=== PATIENT | female | born 1930 | race Caucasian/White ===

== ENCOUNTER 2016-10-22 03:16 | Inpatient (IN) ==
--- NOTE | 2016-10-22 03:25 | Emergency Department Note ---
Disposition Clinical Impression: Fracture of hip Qualifiers: Encounter type: initial encounter Fracture type: closed Laterality: right Qualified Code(s): S72.001A - Fracture of unspecified part of neck of right femur, initial encounter for closed fracture Disposition: Admitted As Inpatient Condition: Fair Time of Disposition: 06:03 Lower Extremity Injury HPI - General Chief Complaint: ED Extremity Injury, Lower Stated Complaint: left hip pain Time Seen by Provider: 10/22/16 03:23 Source: patient, EMS Mode of arrival: EMS Limitations: no limitations Nursing Notes Reviewed: Yes Vital Signs Reviewed: Yes - History of Present Illness HPI Narrative: Patient is brought to the emergency Department squat after a fall at home. She states that she is walking in the living room and turned the wrong way and fell. She states that she was unable to stand after this fall she did have her cellphone with her and she did call her son and they brought her to the emergency room. This was her second fall tonight she states that she has had frequent falls but no previous fractured. She states that she did not lose consciousness she was alert and oriented she continues to be alert and oriented states that she probably was down before someone came for about an hour. She is complaining of pain in the right hip there is obvious external rotation she has excellent pulses are present. Pt Subjective Complaint: hip injury Injury location: Right hip Onset (ago): hour(s) (1) Mechanism of Injury: fall Context: fall Place: home Pain Severity: severe Pain Scale: 10 Improves with: immobilization Worsens with: movement, palpation Associated symptoms: Reports: unable to bear weight - Related Data Previous Rx's Medication Instructions Recorded HYDROcodone/Acet 5/325 mg [[place] 1 tab PO Q6HR #15 tablet 05/27/15 5-325 mg] Allergies Allergy/AdvReac Type Severity Reaction Status Date / Time Penicillins Allergy Rash Verified 05/27/15 12:05 atorvastatin [From Lipitor] AdvReac Muscle Pain Verified 05/27/15 12:05 All systems ED: reviewed and negative except as stated. Constitutional: Denies: fever, chills, weakness, weight change Eyes: Denies: eye pain, eye discharge, vision change ENT ED: Denies: ear pain, throat pain, dental pain, hearing loss, epistaxis, congestion, dysphagia Cardiovascular: Denies: chest pain, palpitations, dyspnea on exertion, edema, syncope Respiratory: Denies: cough, dyspnea, wheezes, hemoptysis, stridor Gastrointestinal: Denies: abdominal pain, nausea, vomiting, diarrhea, constipation, hematemesis, melena, hematochezia Musculoskeletal: Reports: other (right hip pain, ) Neurological: Denies: headache, weakness, numbness, paresthesias, confusion, abnormal gait, vertigo Psychiatric: Denies: anxiety, depression, suicidal thoughts, homicidal thoughts , auditory hallucinations, visual hallucinations Endocrine: Denies: fatigue Hematological/Lymphatic: Denies: easy bleeding, easy bruising Past Medical History - Past Medical History Attestation: Yes The following information was validated with the patient. Source: patient, nursing notes reviewed Medical history: Reports: arthritis, diabetes, other Surgical history: Reports: appendectomy, hip replacement Psychiatric history: Reports: no psych history [employer] history: Reports: bilateral tubal ligation - Social History Smoking Status: Never smoker Smokeless Tobacco Status: No Alcohol use: Reports: none Drug use: Reports: none Physical Exam - General Limitations: no limitations General appearance: alert, in no apparent distress - Head Head exam: atraumatic, normocephalic, normal inspection - Eye Eye exam: Present: normal appearance, PERRL, EOMI - ENT ENT exam: normal exam, normal oropharynx, mucous membranes moist - Neck Neck exam: Present: normal inspection, full ROM, trachea midline - Chest Chest inspection: Present: normal inspection, symmetric chest wall rise - Respiratory Respiratory exam: Present: normal lung sounds bilaterally - Cardiovascular Cardiovascular exam: Present: regular rate, normal rhythm, normal heart sounds - Abdominal Exam Abdominal exam: Present: soft, Non-Tender. Absent: tenderness, distention, guarding, rebound, rigidity - Expanded Upper Extremity Exam Shoulder exam: Present: normal inspection, full ROM Arm exam: Present: normal inspection, full ROM Elbow exam: Present: normal inspection, full ROM Forearm/Wrist exam: Present: normal inspection, full ROM Hand exam: Present: normal inspection, full ROM Vascular exam: Normal: capillary refill, radial pulse - Expanded Lower Extremity Exam Hip/Pelvis exam: Present: tenderness (right hip with external rotation. Excellent pulses present distally to hip. ), deformity Upper leg exam: Present: tenderness (right ) Knee exam: Present: normal inspection, full ROM Lower leg exam: Present: normal inspection, full ROM Ankle exam: Present: normal inspection, full ROM Foot/toe exam: Present: normal inspection, full ROM Neurovascular/Tendon exam: Present: normal 2-point discrimination, normal fine/ light touch. Absent: motor deficit, sensory deficit, tendon deficit Gait: not tested/not observed, unable to bear weight - Back Exam Back exam: Present: normal inspection, full ROM. Absent: tenderness - Neurological Exam Neurological exam: Present: alert, oriented X3 - Psychiatric Psychiatric exam: Present: normal affect, normal mood - Skin Skin exam: Present: warm, dry, intact, normal color Course - Consultations Consultation #1: Spoke with Dr. Cleveland he advised to admit to the hospitalist and he will see her today. Time: 04:28 Consultation #2: Hospitalist paged. Time: 04:32 Consultation #3: Spoke with Dr. Wadsworth, hospitalist who accepted patient. He requested to admit her to [facility]. Time: 04:43 Vital Signs Temperature 0 F L 10/22/16 03:18 Pulse Rate 95 10/22/16 03:18 Respiratory Rate 16 10/22/16 03:18 Blood Pressure 158/81 10/22/16 03:18 O2 Sat by Pulse Oximetry 93 L 10/22/16 03:18 Temperature 0 F L 10/22/16 03:18 Pulse Rate 100 10/22/16 04:38 Respiratory Rate 16 10/22/16 04:38 Blood Pressure 124/59 10/22/16 04:38 O2 Sat by Pulse Oximetry 97 10/22/16 04:38 Oxygen Delivery Oxygen Delivery Nasal Cannula Extremity Injury, Lower - Lab Data Result diagrams: 10/22/16 04:04 10/22/16 04:04 Lab Results 10/22/16 10/22/16 10/22/16 Range/Units 04:04 04:04 04:04 WBC 18.3 H (4.3-11.1) K/mcL RBC 4.37 (3.82-4.97) M/mcL Hgb 12.8 (11.5-15.4) g/dL Hct 38.0 (35.3-44.9) % MCV 87.0 (83.0-100.0) fL MCH 29.3 (28.0-33.3) pg MCHC 33.7 (31.6-35.5) g/dL RDW 13.3 (11.5-14.5) % Plt Count 255 (140-400) K/mcL MPV 11.0 (9.4-12.4) fL Immature Gran % 1.5 (0-4) % Seg Neutrophils % 82.1 % Lymphocytes % 8.1 % Monocytes % 6.6 % Eosinophils % 1.0 % Basophils % 0.7 % Neutrophils # 15.0 H (1.6-8.9) K/mcL Lymphocytes # 1.5 (0.6-4.6) K/mcL Monocytes # 1.2 (0.0-1.3) K/mcL Eosinophils # 0.2 (0.0-0.6) K/mcL Basophils # 0.1 (0.0-0.2) K/mcL PT 13.1 H (9.4-12.1) Seconds INR 1.2 Sodium 136 (136-145) mEq/L Potassium 4.4 (3.5-4.5) mEq/L Chloride 103 (98-109) mEq/L Carbon Dioxide 22 (19-29) mEq/L BUN 16 (7-20) mg/dL Creatinine 1.34 H (0.57-1.11) mg/dL Est GFR ( Amer) 45 L (> 60) Est GFR (Non-Af Amer) 37 L (> 60) BUN/Creatinine Ratio 12 (6-26) Glucose 209 H (70-99) mg/dL Calculated Osmolality 289 (280-300) Calcium 10.0 (8.6-10.8) mg/dL Total Bilirubin 0.5 (0.2-1.2) mg/dL AST 24 (5-34) Units/L ALT 13 (0-55) Units/L Alkaline Phosphatase 85 (38-126) Units/L Serum Total Protein 7.1 (6.0-8.3) g/dL Albumin 3.5 (3.5-5.0) g/dL Globulin 3.6 H (2.4-3.5) g/dL Albumin/Globulin Ratio 1.0 L (1.1-2.2) Blood Type Antibody Screen 10/22/16 Range/Units 04:04 WBC (4.3-11.1) K/mcL RBC (3.82-4.97) M/mcL Hgb (11.5-15.4) g/dL Hct (35.3-44.9) % MCV (83.0-100.0) fL MCH (28.0-33.3) pg MCHC (31.6-35.5) g/dL RDW (11.5-14.5) % Plt Count (140-400) K/mcL MPV (9.4-12.4) fL Immature Gran % (0-4) % Seg Neutrophils % % Lymphocytes % % Monocytes % % Eosinophils % % Basophils % % Neutrophils # (1.6-8.9) K/mcL Lymphocytes # (0.6-4.6) K/mcL Monocytes # (0.0-1.3) K/mcL Eosinophils # (0.0-0.6) K/mcL Basophils # (0.0-0.2) K/mcL PT (9.4-12.1) Seconds INR Sodium (136-145) mEq/L Potassium (3.5-4.5) mEq/L Chloride (98-109) mEq/L Carbon Dioxide (19-29) mEq/L BUN (7-20) mg/dL Creatinine (0.57-1.11) mg/dL Est GFR ( Amer) (> 60) Est GFR (Non-Af Amer) (> 60) BUN/Creatinine Ratio (6-26) Glucose (70-99) mg/dL Calculated Osmolality (280-300) Calcium (8.6-10.8) mg/dL Total Bilirubin (0.2-1.2) mg/dL AST (5-34) Units/L ALT (0-55) Units/L Alkaline Phosphatase (38-126) Units/L Serum Total Protein (6.0-8.3) g/dL Albumin (3.5-5.0) g/dL Globulin (2.4-3.5) g/dL Albumin/Globulin Ratio (1.1-2.2) Blood Type A POSITIVE Antibody Screen NEGATIVE Attestation Statement - Attestation Attestation: I, Ronen Doshi MD, personally performed a history and physical exam of the patient and discussed their management with the midlevel provicer, PAC/WEB KNITTER. I reviewed the midlevel provider's note and agree with the documented findings, medical decision making, and plan of care. 86-year-old female persisted emergency department after a fall at home with an injury to the right hip. Patient states that she just fell onto the right hip and was unable to get up. She denies any syncope, she just lost her balance and fell. She states she did bump her head but denies any loss of consciousness and denies any headache or neck pain. On examination patient is a well-developed well-nourished elderly female in no acute distress. She is alert and oriented 3. There is no cyanosis or diaphoresis. Breath sounds are equal bilaterally. Heart regular rate and rhythm with a 3/6 systolic murmur. Abdomen soft with normal bowel sounds. There is tenderness over the right hip. The right leg is shortened and externally rotated. X-ray shows a displaced fracture of the right femoral neck. The mid-level provider discussed the case with the orthopedist electrician supervisor substation, Dr. Cleveland, and he recommended admission by the hospitalist with orthopedic consultation. The hospitalist, Dr. Wadsworth, was consulted and accepted admission of the patient.
[2016-10-22] MEDS ORDERED: *HR* HYDROmorphone (PF) 1 MG/ML SYRINGE IVP ONE ×2 (03:27→04:31)
[2016-10-22] MEDS ORDERED: 0.9 % Sodium Chloride 1,000 ML IVC ONE (03:27)
[2016-10-22 04:14] LABS: Basophils # 0.1 K/mcL (0.0-0.2); Basophils % 0.7 %; Eosinophils # 0.2 K/mcL (0.0-0.6); Hemoglobin 12.8 g/dL (11.5-15.4); Immature Granulocytes % 1.5 % (0-4); Lymphocytes # 1.5 K/mcL (0.6-4.6); Lymphocytes % 8.1 %; Mean Corpuscular HGB Conc 33.7 g/dL (31.6-35.5); Mean Corpuscular Hemoglobin 29.3 pg (28.0-33.3); Monocytes # 1.2 K/mcL (0.0-1.3); Monocytes % 6.6 %; Platelet Count 255 K/mcL (140-400); Red Blood Count 4.37 M/mcL (3.82-4.97); Red Cell Distribution Width 13.3 % (11.5-14.5); Segmented Neutrophils % 82.1 %
[2016-10-22 04:18] LABS: INR 1.2; Prothrombin Time 13.1 Seconds (9.4-12.1)
[2016-10-22 04:27] LABS: Albumin 3.5 g/dL (3.5-5.0); Bilirubin,Total 0.5 mg/dL (0.2-1.2); Globulin 3.6 g/dL (2.4-3.5); Potassium 4.4 mEq/L (3.5-4.5); Total Protein 7.1 g/dL (6.0-8.3)
[2016-10-22] MEDS ORDERED: Acetaminophen 325 MG TABLET PO PRN (04:49)
[2016-10-22] MEDS ORDERED: Ondansetron 4 MG/2 ML VIAL IVP PRN (04:49)
[2016-10-22] MEDS ORDERED: *HR* HYDROmorphone (PF) 1 MG/ML SYRINGE IVP PRN (04:49)
[2016-10-22] MEDS ORDERED: Naloxone 0.4 MG/ML INJ IVP PRN (04:49)
[2016-10-22] MEDS ORDERED: 0.9 % Sodium Chloride 1,000 ML IVC SCH (05:00)
[2016-10-22] MEDS ORDERED: *HR* Dextrose 50 % in Water (Syg) 50 ML SYRINGE IVP PRN (05:37)
[2016-10-22] MEDS ORDERED: D5% in Water 1,000 ML IV PRN (05:37)
[2016-10-22] MEDS ORDERED: Dextrose Gel 15 GM PO PRN ×2 (05:37)
[2016-10-22] MEDS ORDERED: *HR* Heparin 5,000 UNIT/ML VIAL SQ SCH (06:00)
[2016-10-22 06:01] LABS: VBG HCO3 27.4 mEq/L (21-27); VBG PH 7.29 pH Units (7.32-7.42)
[2016-10-22 06:13] LABS: Hemoglobin A1C 8.1 %
[2016-10-22 06:14] LABS: Magnesium 1.8 mg/dL (1.6-2.6); Phosphorous 3.3 mg/dL (2.3-4.7)
[2016-10-22 06:37] LABS: Thyroid Stimulating Hormone 3.572 mcIU/mL (0.350-4.840)
--- NOTE | 2016-10-22 06:38 | Orthopedic Consult Note ---
Date of Encounter: 10/22/16 Time of Encounter: 06:38 History of Present Illness HPI: Ms. Garcia is a 86 year old female Status post fall at home and complains of right hip pain and inability to walk. Patient has a history of severe aortic stenosis followed by our cardiology team. Patient with persistent cough. Physical exam alert and oriented 3 Right lower extremity shortened and externally rotated Decreased range of motion secondary to pain Neurovascular intact X-rays displaced right femoral neck fracture Recommendation right hip hemiarthroplasty patient will require medical clearance prior to surgery. Risks benefits as well as recovery were discussed Past Med Surg Social Fam HX - Past Medical History Medical history: arthritis, diabetes, other Psychiatric history: no psych history - Past Surgical History Surgical History: appendectomy, hip replacement - Social History Smoking Status: Never smoker Smokeless Tobacco Status: No Alcohol use: none Drug use: none - Family History Father Hx Family Cardiac Disorders: Yes Medications and Allergies HYDROcodone/Acet 5/325 mg [[place] 5-325 mg] 1 tab PO Q6HR #15 tablet 05/27/15 [Rx ] Allergies Penicillins Allergy (Verified 05/27/15 12:05) Rash atorvastatin [From Lipitor] Adverse Reaction (Verified 05/27/15 12:05) Muscle Pain All Systems Reviewed: A 10-system review of systems was performed and is negative for pertinent findings except as documented above in the HPI. Physical Exam - Constitutional Vitals: Temp Pulse Resp BP Pulse Ox 98.5 F 97 16 136/72 96 10/22/16 06:24 10/22/16 06:24 10/22/16 06:24 10/22/16 06:24 10/22/16 06:24 Results - Labs Result Diagrams: 10/22/16 04:04 10/22/16 04:04 Labs: Abnormal lab results WBC 18.3 K/mcL (4.3-11.1) H 10/22/16 04:04 Neutrophils # 15.0 K/mcL (1.6-8.9) H 10/22/16 04:04 PT 13.1 Seconds (9.4-12.1) H 10/22/16 04:04 VBG pH 7.29 pH Units (7.32-7.42) L 10/22/16 05:50 VBG pCO2 57 mmHg (41-51) H 10/22/16 05:50 VBG HCO3 27.4 mEq/L (21-27) H 10/22/16 05:50 Creatinine 1.34 mg/dL (0.57-1.11) H 10/22/16 04:04 Est GFR ( Amer) 45 (> 60) L 10/22/16 04:04 Est GFR (Non-Af Amer) 37 (> 60) L 10/22/16 04:04 Glucose 209 mg/dL (70-99) H 10/22/16 04:04 Hemoglobin A1c 8.1 % (-5.6) H 10/22/16 05:50 Troponin I 0.04 ng/mL (0-0.03) H* 10/22/16 05:50 Globulin 3.6 g/dL (2.4-3.5) H 10/22/16 04:04 Albumin/Globulin Ratio 1.0 (1.1-2.2) L 10/22/16 04:04 All other labs normal. Consult Discharge Plan - Plan Referrals: Yung Addison Jr, MD [Primary Care Provider] -
--- NOTE | 2016-10-22 06:45 | Internal Med History&Physical ---
<Tai Mcfadden - Last Filed: 10/22/16 08:02> Date of Encounter: 10/22/16 Time of Encounter: 06:00 Assessment and Plan (1) Fall Status: Acute R closed displaced femoral neck fracture s/p fall while walking at home. History of unbalance for 2 years. Unable to compensate, with worsening weakness for the past 3 weeks. Notes today first time falling, fell twice. Patient complains of URI symptoms x 3 weeks. Qualifiers: Encounter type: initial encounter Qualified Code(s): W19.XXXA - Unspecified fall, initial encounter (2) Fracture of femoral neck, right, closed Status: Acute XR showed acute displaced R femoral neck fracture. Dr. Cleveland notified and patient said he had been by to see her. Currently NPO. Continue pain management. Qualifiers: Encounter type: initial encounter Qualified Code(s): S72.001A - Fracture of unspecified part of neck of right femur, initial encounter for closed fracture (3) Upper respiratory infection Status: Acute Likely viral URI. Afebrile. Pending CXR. Consider sputum culture. Ordered scheduled duonebs, prn albuterol, incentive spirometry. Continue supplemental oxygen as needed. Qualifiers: URI type: unspecified URI Qualified Code(s): J06.9 - Acute upper respiratory infection, unspecified (4) Aortic stenosis Status: Chronic Patient states she was told in December 2014 that she had severe aortic stenosis. Will look for records to confirm. Pending echo. Consider cardiology consult. Will likely need consult for surgical clearance. Qualifiers: Cardiac valve disease etiology: etiology unspecified Qualified Code(s): I35.0 - Nonrheumatic aortic (valve) stenosis (5) Pain management Status: Acute Dilaudid 0.5mg Q4H prn. Internal Medicine - H&P: HPI Chief complaint: Fall Admitted From: Emergency Dept Plans for Post Hospital Care: Transfer Inp Rehab Fac History of present illness: Ms. Garcia is a 86 year old female that presented to the ED for R hip pain, s/ p fall at home this evening. Patient states she had two falls today, both in her living room. With the second fall, patient was unable to get up and was experiencing severe pain in right hip. Patient was able to call family to come get her. Patient notes increased instability and unbalance since she was inpatient with pneumonia on 12/29/14. Patient has been acutely worse the past 3 weeks while dealing with upper respiratory symptoms of cough, sputum, shortness of breath, and weakness. Patient states she was not able to get in to see her doctor for her symptoms. Patiet states she was unable to counteract her unbalance today and fell twice, she states this is the first time she has fallen. Patient denies headache, syncope, dizziness, chest pain, abdominal pain , nausea, vomiting, diarrhea, constipation, dysuria, or blood in stool/urine. Past Med Surg Social Fam HX - Past Medical History Medical history: arthritis, diabetes, other Psychiatric history: no psych history - Past Surgical History Surgical History: appendectomy, hip replacement - Social History Smoking Status: Never smoker Smokeless Tobacco Status: No Alcohol use: none Drug use: none - Family History Father Hx Family Cardiac Disorders: Yes Internal Medicine - H&P: Meds Furosemide [Lasix] 20 mg PO DAILY 10/22/16 [History] Isosorbide MONOnitrate (24 HR) [Imdur] 30 mg PO DAILY 10/22/16 [History] Meloxicam [Meloxicam] 15 mg PO DAILY PRN 10/22/16 [History] Nitroglycerin [Nitrostat] 0.4 mg PO Q5M PRN 10/22/16 [History] Allergies Penicillins Allergy (Verified 10/22/16 08:44) Rash atorvastatin [From Lipitor] Adverse Reaction (Verified 10/22/16 08:44) Muscle Pain All Systems PM: A 10-system review of systems was performed and is negative for pertinent findings except as documented above in the HPI. - Constitutional Constitutional: falls, weight loss (5 lbs), no chills, no fever(s) - EENT Eyes: no change in vision, no loss of vision Nose, mouth and throat: post-nasal drip, sore throat - Cardiovascular Cardiovascular ROS IM: dyspnea, no chest pain, no lightheadedness, no palpitations, no syncope - Respiratory Respiratory: cough, dyspnea, excessive phlegm production (yellow) - Gastrointestinal Gastrointestinal: no abdominal pain, no constipation, no diarrhea, no hematemesis, no hematochezia, no nausea, no vomiting - Musculoskeletal Musculoskeletal ROS IM: muscle weakness - Integumentary Integumentary IM: no erythema, no rash - Neurological Neurological ROS: disequilibrium, no confusion, no dizziness - Hematologic/Lymphatic Hematologic/Lymphatic: no easy bleeding - Constitutional Vitals: Temp Pulse Resp BP Pulse Ox 98.5 F 97 16 136/72 96 10/22/16 06:24 10/22/16 06:24 10/22/16 06:24 10/22/16 06:24 10/22/16 06:24 General appearance: Present: cooperative, A&O X 3, no acute distress, answers questions appropriately - Head Head exam: Present: atraumatic, normocephalic - Eye Eye exam: Present: conjuntiva pink, sclera anicteric Pupils: Present: miosis - Neck Neck exam general surgery: Present: full ROM, supple, trachea midline - Respiratory Respiratory exam: Present: wheezes (diffuse wheezing heard throughout). Absent : accessory muscle use, rales, rhonchi - Cardiovascular Cardiovascular exam: Present: RRR, +S1, +S2, systolic murmur (harsh holosystolic murmur 3/6). Absent: diastolic murmur, gallop, rubs - GI/Abdominal GI/Abdominal exam: Present: normal bowel sounds, soft, no peritoneal signs. Absent: distended, tenderness - Extremities Exam Extremities exam: Present: tenderness (tenderness of upper right thigh), warm. Absent: calf tenderness, cyanotic, pedal edema Additional comments: DP pulses 2+ bilaterally. No gross swelling. No gross discrepancy in size between legs. - Neurological Exam Neurological exam: Present: alert, oriented X3, no focal deficits. Absent: facial droop, speech deficit - Skin Skin exam: Present: dry, intact Internal Med - H&P Results - Labs CBC & Chem 7: 10/22/16 04:04 10/22/16 04:04 Labs: Cardiac Enzymes 10/22/16 Range/Units 05:50 Troponin I 0.04 H* (0-0.03) ng/mL - ABG Interpretation ABG results: 10/22/16 05:50 VBG pH 7.29 L VBG pCO2 57 H VBG pO2 33 VBG HCO3 27.4 H <Lawrence Wadsworth - Last Filed: 10/24/16 02:46> Date of Encounter: 10/22/16 Assessment and Plan (1) 3-vessel coronary artery disease Status: Chronic . (2) Coronary artery disease involving left main coronary artery Status: Chronic . (3) CHF NYHA class III (symptoms with mildly strenuous activities) Status: Chronic . Qualifiers: Congestive heart failure type: combined Congestive heart failure chronicity : chronic Qualified Code(s): I50.42 - Chronic combined systolic (congestive) and diastolic (congestive) heart failure (4) Solitary pulmonary nodule Status: Chronic . (5) Diabetes mellitus type 2 in nonobese Status: Chronic . (6) CKD (chronic kidney disease) stage 3, GFR 30-59 ml/min Status: Chronic . (7) Fracture of femoral neck, right, closed Status: Acute . Qualifiers: Encounter type: initial encounter Qualified Code(s): S72.001A - Fracture of unspecified part of neck of right femur, initial encounter for closed fracture (8) Severe aortic stenosis Status: Chronic . (9) Osteoarthritis involving multiple joints on both sides of body Status: Chronic . (10) Osteoporosis Status: Chronic . (11) Age-related physical debility Status: Chronic . Internal Medicine - H&P: HPI History of present illness: Ms. Garcia is a 86 year old female with medical history significant for severe multivessal CAD/left main CAD, chronic diastolic CHF/NYHA III-IV, valvular heart disease/ severe aortic stenosis, indeterminate pulmonary nodules (?mets), hypertension, dyslipidemia, osteoarthritis, osteoporosis, lumbar spinal stenosis , diabetes mellitus type 2, COPD, nonsmoker The patient was visited and interviewed and examined. I examined this patient and my medical decision-making was reviewed with the Resident Physician. I agree with the documented findings, disposition and treatment plan as described except to the extent set forth below. Cumulative laboratory and radiographic database was reviewed and considered and discussed. Pertinent ancillary medical records including ECW and PCI documentation, when available, was reviewed and considered. Given the patient's presenting concerns, past medical history, clinical findings and symptoms, she is admitted at this time to undergo further evaluation and disposition. Orders were written as per the computerized physician warehouse order filler system. Past Med Surg Social Fam HX - Past Medical History Source: old records reviewed Medical history: arthritis, cardiomyopathy, CHF (Diastolic dysfunction.), coronary artery disease, diabetes, hyperlipidemia, hypertension, osteoporosis, renal disease, valvular heart disease (H/O Rheumatic fever.), other (Lumbar spinal stenosis. Positional vertigo. Every loss. Dyschromia. Stress urinary incontinence. Plantar fasciitis. Degenerative joint disease. Cataracts.) - Past Surgical History Surgical History: appendectomy, cataract, hip replacement (3), orthopedic, other (Laminectomy. Right carpal tunnel release.), other (Tonsillectomy adenoidectomy. Tubal ligation.) - Social History Smoking Status: Never smoker Occupational status: other Current living situation: Home - Independent Activity Level: Independent ambulation, Mostly sedentary Recent Out of Country Travel Within the Last 8 Weeks: No Exposure or Possible Exposure to Illness During Travel: No All Systems PM: A 10-system review of systems was performed and is negative for pertinent findings except as documented above in the HPI. - Constitutional Vitals: Temp Pulse Resp BP Pulse Ox 98.8 F 87 16 119/63 96 10/22/16 14:58 10/22/16 14:58 10/22/16 14:58 10/22/16 14:58 10/22/16 14:58 Internal Med - H&P Results - Labs CBC & Chem 7: 10/22/16 04:04 10/22/16 04:04 - ABG Interpretation ABG results: 10/22/16 05:50 VBG pH 7.29 L VBG pCO2 57 H VBG pO2 33 VBG HCO3 27.4 H - Impressions ITS Impressions Chest CT 10/22/16 09:00 IMPRESSION: 1. No acute pulmonary abnormality. 2. Left lower lobe nodule measuring 12 x 9 mm has enlarged from 9 x 7 mm previously and is suspicious for malignancy. The next step would be further evaluation with PET-CT or percutaneous biopsy. D/ / 10/22/2016 09:11:21 Booker Noble MD / [email or web address] Interpreting Provider: Booker Noble MD Abnormal lab results WBC 18.3 K/mcL (4.3-11.1) H 10/22/16 04:04 Neutrophils # 15.0 K/mcL (1.6-8.9) H 10/22/16 04:04 PT 13.1 Seconds (9.4-12.1) H 10/22/16 04:04 VBG pH 7.29 pH Units (7.32-7.42) L 10/22/16 05:50 VBG pCO2 57 mmHg (41-51) H 10/22/16 05:50 VBG HCO3 27.4 mEq/L (21-27) H 10/22/16 05:50 Creatinine 1.34 mg/dL (0.57-1.11) H 10/22/16 04:04 Est GFR ( Amer) 45 (> 60) L 10/22/16 04:04 Est GFR (Non-Af Amer) 37 (> 60) L 10/22/16 04:04 Glucose 209 mg/dL (70-99) H 10/22/16 04:04 POC Glucose 119 (58-89) H 10/22/16 11:44 Hemoglobin A1c 8.1 % (-5.6) H 10/22/16 05:50 Troponin I 3.29 ng/mL (0-0.03) H* 10/22/16 11:40 Globulin 3.6 g/dL (2.4-3.5) H 10/22/16 04:04 Albumin/Globulin Ratio 1.0 (1.1-2.2) L 10/22/16 04:04 Urine Glucose (UA) 100 mg/dL (Normal) H 10/22/16 09:35 Urine Ketones Trace mg/dL (Negative) H 10/22/16 09:35 Laboratory Results WBC 18.3 K/mcL (4.3-11.1) H 10/22/16 04:04 RBC 4.37 M/mcL (3.82-4.97) 10/22/16 04:04 Hgb 12.8 g/dL (11.5-15.4) 10/22/16 04:04 Hct 38.0 % (35.3-44.9) 10/22/16 04:04 MCV 87.0 fL (83.0-100.0) 10/22/16 04:04 MCH 29.3 pg (28.0-33.3) 10/22/16 04:04 MCHC 33.7 g/dL (31.6-35.5) 10/22/16 04:04 RDW 13.3 % (11.5-14.5) 10/22/16 04:04 Plt Count 255 K/mcL (140-400) 10/22/16 04:04 MPV 11.0 fL (9.4-12.4) 10/22/16 04:04 Immature Gran % 1.5 % (0-4) 10/22/16 04:04 Seg Neutrophils % 82.1 % 10/22/16 04:04 Lymphocytes % 8.1 % 10/22/16 04:04 Monocytes % 6.6 % 10/22/16 04:04 Eosinophils % 1.0 % 10/22/16 04:04 Basophils % 0.7 % 10/22/16 04:04 Neutrophils # 15.0 K/mcL (1.6-8.9) H 10/22/16 04:04 Lymphocytes # 1.5 K/mcL (0.6-4.6) 10/22/16 04:04 Monocytes # 1.2 K/mcL (0.0-1.3) 10/22/16 04:04 Eosinophils # 0.2 K/mcL (0.0-0.6) 10/22/16 04:04 Basophils # 0.1 K/mcL (0.0-0.2) 10/22/16 04:04 PT 13.1 Seconds (9.4-12.1) H 10/22/16 04:04 INR 1.2 10/22/16 04:04 APTT 29.7 Seconds (26.0-36.0) 10/22/16 05:50 VBG pH 7.29 pH Units (7.32-7.42) L 10/22/16 05:50 VBG pCO2 57 mmHg (41-51) H 10/22/16 05:50 VBG pO2 33 mmHg (25-40) 10/22/16 05:50 VBG HCO3 27.4 mEq/L (21-27) H 10/22/16 05:50 Sodium 136 mEq/L (136-145) 10/22/16 04:04 Potassium 4.4 mEq/L (3.5-4.5) 10/22/16 04:04 Chloride 103 mEq/L (98-109) 10/22/16 04:04 Carbon Dioxide 22 mEq/L (19-29) 10/22/16 04:04 BUN 16 mg/dL (7-20) 10/22/16 04:04 Creatinine 1.34 mg/dL (0.57-1.11) H 10/22/16 04:04 Est GFR ( Amer) 45 (> 60) L 10/22/16 04:04 Est GFR (Non-Af Amer) 37 (> 60) L 10/22/16 04:04 BUN/Creatinine Ratio 12 (6-26) 10/22/16 04:04 Glucose 209 mg/dL (70-99) H 10/22/16 04:04 POC Glucose 119 (58-89) H 10/22/16 11:44 Est Mean Plasma Glucose 186 mg/dl 10/22/16 05:50 Hemoglobin A1c 8.1 % (-5.6) H 10/22/16 05:50 Calculated Osmolality 289 (280-300) 10/22/16 04:04 Calcium 10.0 mg/dL (8.6-10.8) 10/22/16 04:04 Phosphorus 3.3 mg/dL (2.3-4.7) 10/22/16 05:50 Magnesium 1.8 mg/dL (1.6-2.6) 10/22/16 05:50 Total Bilirubin 0.5 mg/dL (0.2-1.2) 10/22/16 04:04 AST 24 Units/L (5-34) 10/22/16 04:04 ALT 13 Units/L (0-55) 10/22/16 04:04 Alkaline Phosphatase 85 Units/L (38-126) 10/22/16 04:04 Creatine Kinase 61 Units/L (29-168) 10/22/16 05:50 Troponin I 3.29 ng/mL (0-0.03) H* 10/22/16 11:40 Serum Total Protein 7.1 g/dL (6.0-8.3) 10/22/16 04:04 Albumin 3.5 g/dL (3.5-5.0) 10/22/16 04:04 Globulin 3.6 g/dL (2.4-3.5) H 10/22/16 04:04 Albumin/Globulin Ratio 1.0 (1.1-2.2) L 10/22/16 04:04 TSH 3.572 mcIU/mL (0.350-4.840) 10/22/16 05:50 Urine Color Yellow (Yellow) 10/22/16 09:35 Urine Clarity Clear (Clear) 10/22/16 09:35 Urine pH 5.0 pH Units (5.0-8.0) 10/22/16 09:35 Ur Specific Win[place]red 1.013 (1.010-1.025) 10/22/16 09:35 Urine Protein Negative mg/dL (Neg-Trace) 10/22/16 09:35 Urine Glucose (UA) 100 mg/dL (Normal) H 10/22/16 09:35 Urine Ketones Trace mg/dL (Negative) H 10/22/16 09:35 Urine Blood Negative (Negative) 10/22/16 09:35 Urine Nitrite Negative (Negative) 10/22/16 09:35 Urine Bilirubin Negative (Negative) 10/22/16 09:35 Urine Urobilinogen Normal mg/dL (Normal) 10/22/16 09:35 Ur Leukocyte Esterase Negative (Negative) 10/22/16 09:35 Blood Type A POSITIVE 10/22/16 04:04 Antibody Screen NEGATIVE 10/22/16 04:04 Impressions Hip X-Ray 10/22/16 03:27 IMPRESSION: Acute displaced right femoral neck fracture. D/ / 10/22/2016 05:29:36 Chad Titus MD / [facility] Interpreting Provider: Chad Titus MD Chest X-Ray 10/22/16 04:55 IMPRESSION: Slightly increased interstitial markings bilaterally which may be related to chronic interstitial lung disease versus mild edema. There is also a subtle opacity in left lung base, which may represent early infiltrate. Also given findings of nodules noted on the prior PET-CT, CT of the chest is recommended if this has not already been performed at a different facility. D/ / 10/22/2016 07:21:50 Hallie Crespo MD / [facility] Interpreting Provider: Hallie Crespo MD Chest CT 10/22/16 09:00 IMPRESSION: 1. No acute pulmonary abnormality. 2. Left lower lobe nodule measuring 12 x 9 mm has enlarged from 9 x 7 mm previously and is suspicious for malignancy. The next step would be further evaluation with PET-CT or percutaneous biopsy. D/ / 10/22/2016 09:11:21 Booker Noble MD / [facility] Interpreting Provider: Booker Noble MD - Attending Attestation My signature below is to certify that this patient is under my care and that I, or the Resident Physician working with me, has had a [id number] encounter with this patient. Plan of care has been reviewed and discussed in detail with the patient. Questions addressed to her satisfaction and reassurance. Advance care directive briefly addressed. Patient does not declare any healthcare restrictions at this time. Outpatient medication schedule will be reviewed, confirmed and facilitated as appropriate. Reconciliation of home treatments including adjustments, substitutions and reintroduction into the treatment regimen will address necessary maintenance therapies for chronic pre-existing medical conditions. Smoking cessation counseling briefly addressed. The patient is a nonsmoker. Hospital course will be dependent on collective clinical findings, treatment response and potential consultative interventions. The patient is at increased risk for further acute clinical decline in mobility given her presenting chief complaint, advanced age, frailty and associated comorbidities. Pre-operative medical clearance consultation requested of a Cardiology, in light of significant history of moderate to severe aortic stenosis and severe multivessel CAD with NYHA class III-IV functional limitation. Condition is serious. Prognosis is guarded. CODE STATUS is reported as full.
[2016-10-22] MEDS ORDERED: Albuterol 2.5 MG/3 ML NEBULIZER IH PRN (06:55)
[2016-10-22] MEDS ORDERED: Benzonatate 100 MG CAPSULE PO PRN (06:57)
--- NOTE | 2016-10-22 08:53 | Cardiology Consult Note ---
Date of Encounter: 10/22/16 Time of Encounter: 08:45 Assessment and Plan (1) Pre-operative cardiovascular examination Current Visit: Yes Status: Acute Patient has a known history of severe CAD and severe aortic stenosis diagnosed in December 2014. She opted for medical management at that time d/t being high risk for surgery. Reports intermittent chest pain with exertion and at night requiring SL NTG. Mild troponin in the setting off fall/fracture and known CAD. Demand ischemia. EKG shows mild ST depression in the anterolateral leads. TTE ordered by hospitalist and pending. Re-evaluate EF. High risk of severe morbidity and mortality for hip surgery with known symptomatic severe aortic stenosis. Discussed with Dr. Arnold, recommends transfer to tertiary center for evaluation for ballon valvuloplasty of the aortic valve prior to hip surgery. TTE pending. We will discuss further with patient. (2) Severe aortic stenosis Current Visit: Yes Status: Acute Cardiac catheterization Dec 2014: severe 80% left main three vessel coronary artery disease. Severe aortic stenosis with a mean gradient of 42 mmHg. Echocardiogram Dec 2014: LVEF 65-70%.Mild diastolic dysfunction.Normal right ventricular structure and function. Heavily calcified, severely restricted aortic valve. Visually, the valve appears severely stenotic. MG 17 mmHg would indicate only mild ; this is certainly underestimated. Dimensionless index 0.34 indicates moderate , which also may underestimate severity of . Mild tricuspid regurgitation. No pulmonary hypertension. Estimated RVSP is 27 mmHg Pt evaluated by CT surgery at [place] 06/2015. Recommended further evaluation for AVR /CABG but she declined at that time. Last seen 05/2016 in Cardiology office. (3) CAD (coronary artery disease) Current Visit: Yes Status: Acute Asa and beta-casey recommended. Continue imdur. On metoprolol succinate 25 mg daily at home. I will restart. Not on statin d/t allergy. Qualifiers: Coronary Disease-Associated Artery/Lesion type: resighini artery [place] vs. transplanted heart: resighini heart Associated angina: angina presence unspecified Qualified Code(s): I25.10 - Atherosclerotic heart disease of resighini coronary artery without angina pectoris Discussion w patient/family: The assessment and plan as outlined above was discussed with the patient and/or family members who expressed understanding and agreement. All questions were answered. Thank you for involving us in the care of your patient. Please call with any questions. History of Present Illness Consult date: 10/22/15 Requesting physician: Tai Mcfadden Consult reason: Pre-operative cardiac clearance. Chief complaint: Fall History of present illness: Ms. Garcia is a 86 year old female with past medical history of severe , severe 3 vessel CAD, and HTN who presents after mechanical fall. She was found to have a right hip fracture. Cardiology consulted for pre-operative clearance. Pt Fell at home after turning the wrong way. She was unable to get up and laid in her living room for an hour for help. Reports feeling off balance for the past 3 weeks and almost falling several times before this fall. She denied chest pain at the time of fall or after. Denied dizziness or syncope. C/o midsternal chest pain waking her up from her sleep two nights ago. The pain was relieved with 2 SL NTG. Also c/o of chest pain with any physical exertion. C/o moist cough for over three weeks. She took over the counter medication with no relief. Denies orthopnea, PND or edema. She was found to have severe aortic stenosis with mean gradient of 42 mmHg and CAD with and 80% stenosis in the LMCA with 3 V CAD in December 2014. She declined evaluation for surgery at tertiary center and opted for medical mangement only. Previous cardiac testing: Cardiac catheterization 2014: severe 80% left main three vessel coronary artery disease. Severe aortic stenosis with a mean gradient of 42 mmHg. 95% stenosis in the ostial/Proximal LAD. 60% stenosis in the Proximal Circumflex, 60% stenosis in the Mid Circumflex., 40% stenosis in the 1st Marginal,100% stenosis in the Mid RCA. Echocardiogram 2014: Normal left ventricular structure and function. LVEF 65-70%. Mild diastolic dysfunction. Normal right ventricular structure and function. Heavily calcified, severely restricted aortic valve. Visually, the valve appears severely stenotic. MG 17 mmHg would indicate only mild ; this is certainly underestimated. Dimensionless index 0.34 indicates moderate , which also may underestimate severity of . If patient is a candidate for aortic valve replacement, consider cardiac catheterization for confirmation of severity of . Mild tricuspid regurgitation. No pulmonary hypertension. Estimated RVSP is 27 mmHg Past Med Surg Social Fam HX - Past Medical History Medical history: arthritis, diabetes, other Psychiatric history: no psych history - Past Surgical History Surgical History: appendectomy, hip replacement - Social History Smoking Status: Never smoker Smokeless Tobacco Status: No Alcohol use: none Drug use: none - Family History Father Hx Family Cardiac Disorders: Yes Medications and Allergies Furosemide [Lasix] 20 mg PO DAILY 10/22/16 [History] Isosorbide MONOnitrate (24 HR) [Imdur] 30 mg PO DAILY 10/22/16 [History] Meloxicam [Meloxicam] 15 mg PO DAILY PRN 10/22/16 [History] Nitroglycerin [Nitrostat] 0.4 mg PO Q5M PRN 10/22/16 [History] Allergies Penicillins Allergy (Verified 10/22/16 08:44) Rash atorvastatin [From Lipitor] Adverse Reaction (Verified 10/22/16 08:44) Muscle Pain All Systems Review: A 10-system review of systems was performed and is negative for pertinent findings except as documented above in the HPI. Physical Examination Vital Signs, Last 4 Hours Temp Pulse Resp BP Pulse Ox 10/22/16 06:24 98.5 F 97 16 136/72 96 General: Conversant, No Apparent Distress, Other (Elderly female. ) HEENT: Atraumatic, Normocephaly, Mucus Membranes Moist Neck: No JVD, Normal carotid pulses Cardiac: Reg Rate and Rhythm, Normal S1 and S2, Other (3/6 systolic murmur) Lungs: Normal Breath Sounds, No Wheeze, Rales, Rhonchi Neuro: Alert and responsive, No focal deficits noted Abdomen: Soft, Non-Tender Skin: No rashes noted on visualized skin Musculoskeletal: No Chest Wall Tenderness Extremities: No Clubbing, No Cyanosis, No Edema, Normal Pulses Results 10/22/16 04:04 10/22/16 04:04 Lab Results 10/22/16 10/22/16 10/22/16 05:50 05:50 05:50 APTT 29.7 Magnesium 1.8 Troponin I 0.04 H* TSH 3.572 - Imaging and Cardiology Echo: report reviewed - EKG Interpretation EKG results cardiology: personally reviewed (Sr with borderline ST depression in leads V3-V6) Consult Discharge Plan - Plan Referrals: Yung Addison Jr, MD [Primary Care Provider] -
[2016-10-22] MEDS ORDERED: MethylPREDNISolone 40 MG/ML VIAL IVP SCH (09:00)
[2016-10-22] MEDS: *HR* OxyCODONE Immed Rel 5 MG TABLET PO PRN ×2 (09:11→15:05)
[2016-10-22] MEDS: Insulin LISPRO 300 UNITS/3 ML VIAL SQ SCH ×2 (09:21→11:45)
[2016-10-22 09:57] LABS: Bilirubin,Urine Negative (Negative); Blood,Urine Negative (Negative); Clarity,Urine Clear (Clear); Color,Urine Yellow (Yellow); Glucose,Urine (UA) 100 mg/dL (Normal); Ketones,Urine Trace mg/dL (Negative); Leukocyte Esterase,Urine Negative (Negative); Nitrite,Urine Negative (Negative); Protein,Urine Negative (Neg-Trace); Specific Gravity,Urine 1.013 (1.010-1.025); Urobilinogen,Urine Normal (Normal)
--- NOTE | 2016-10-22 10:11 | ECHO - Doppler Report ---
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 Normal LV chamber size and wall thickness. Not all LV segments were well visualized, but overall LV function was normal. Mild left ventricular diastolic dysfunction. Normal right ventricular structure and function. Moderately calcified aortic valve leaflets. Moderate aortic stenosis. Mean gradient 23 mmHg. No evidence of pulmonary hypertension. Findings: Study Quality * Technically sub-optimal due to poor echocardiographic windows. ECG Findings * Normal sinus rhythm. Left Ventricle * LVEF 60-65%. * Normal LV chamber size and wall thickness. Not all LV segments were well visualized, but overall LV function was normal. * Mild left ventricular diastolic dysfunction. Right Ventricle * Normal right ventricular structure and function. Left Atrium * Mildly dilated left atrium. Right Atrium * Normal right atrial size. Interatrial Septum * Interatrial septum not well evaluated. Aortic Valve * Moderately calcified aortic valve leaflets. The number of leaflets cannot be determined. * No aortic regurgitation. * Moderate aortic stenosis. Mean gradient 23 mmHg. Mitral Valve * Mildly thickened mitral valve leaflets. * Mild mitral annular calcification * Trace mitral regurgitation. * No mitral stenosis. Tricuspid Valve * Normal tricuspid valve structure and function. * Trace tricuspid regurgitation. * No evidence of pulmonary hypertension. Pulmonic Valve * Normal pulmonic valve structure and function. * No pulmonic regurgitation. Aorta * Normally sized aortic root. Pericardium * The pericardium appears normal. IVC * Normal IVC dimensions and inspiratory collapse. Pulmonary Artery * Normal visualized portions of the main pulmonary artery. History Family History of CAD 12/29/14 a Previous Echo was performed. Measurements: BP: 136/ 72 2D Normal Values RVIDd: 2.30 cm <2.7 cm IVSd: 1.10 cm 0.6 - 1.0 cm LVIDd: 3.60 cm 3.7 - 5.6 cm LVPWd: 1.20 cm 0.6 - 1.1 cm LVIDs: 2.60 cm 1.5 - 3.6 cm AO: 2.60 cm < 4.0 cm LA: 3.00 cm 2.0 - 4.0cm %FS: 27.80 cm >25 % LVOT Diam: 2.00 cm LA volume: 31 Mitral Valve Peak E:.89 m/sec Peak A:1.28 m/sec E/A Ratio:0.7 Peak E' Lat Ra:6.43 cm/s Peak E' Med Ra:4.97 cm/s LVOT Peak Ra:.84 m/sec Mean Ra:.60 m/sec Peak Grad:3.00 mmHg Mean Grad:2.00 mmHg Aortic Valve Peak Ra:2.88 m/sec Mean Ra:2.32 m/sec Peak Grad:33.00 mmHg Mean Grad:23.00 mmHg Valve Area:.98 cm2 Tricuspid Valve TV Regurg Peak Grad: 11.00mmHg TV Regurg Peak Ra: 1.64m/sec Updated by Leonardo Mcclendon DO, FACChaparro, NARAYAN, FASMICHELLE on 10/22/2016 10:06:20 AM electronically signed on 10/22/2016 10:07:05 AM with status of [employer]: 1=Normal, 2=Hypokinesis, 3=Akinesis, 4=Dyskinesis, 5=Aneurysmal, 6=Hyperkinetic, X=Not Visualized (Blank)=Missing
[2016-10-22] MEDS ORDERED: Metoprolol XL (24 HR) Succ 25 MG TAB.ER.24H PO SCH (10:45)
[2016-10-22] MEDS ORDERED: Aspirin Enteric Coated 81 MG Tablet PO SCH (10:45)
[2016-10-22] MEDS ORDERED: Ipratropium/Albuterol Neb 3 ML IH SCH (11:00)
--- NOTE | 2016-10-22 11:56 | Discharge Summary ---
Date of Encounter: 10/22/16 Time of Encounter: 11:54 - Discharge Diagnosis (1) Fracture of femoral neck, right, closed Priority: Primary Status: Acute Comments: Patient admitted here for right femoral neck fracture. Related by orthopedics. Recommended surgery. However patient has severe aortic stenosis and coronary artery disease with severe multivessel disease. Recommend transfer to tertiary care center for further management. Qualifiers: Encounter type: initial encounter Qualified Code(s): S72.001A - Fracture of unspecified part of neck of right femur, initial encounter for closed fracture (2) CAD (coronary artery disease) Priority: Secondary Status: Acute Qualifiers: Coronary Disease-Associated Artery/Lesion type: [place] artery [place] vs. transplanted heart: [place] heart Associated angina: angina presence unspecified Qualified Code(s): I25.10 - Atherosclerotic heart disease of [place] coronary artery without angina pectoris (3) Severe aortic stenosis Priority: Secondary Status: Acute (4) Upper respiratory infection Priority: Secondary Status: Acute Comments: Viral. Improving. Supportive care Qualifiers: URI type: unspecified URI Qualified Code(s): J06.9 - Acute upper respiratory infection, unspecified - Discharge Medications Home Medications: Furosemide [Lasix] 20 mg PO DAILY 10/22/16 [History] Isosorbide MONOnitrate (24 HR) [Imdur] 30 mg PO DAILY 10/22/16 [History] Meloxicam [Meloxicam] 15 mg PO DAILY PRN 10/22/16 [History] Nitroglycerin [Nitrostat] 0.4 mg PO Q5M PRN 10/22/16 [History] Allergies/Adverse Reactions: Allergies Penicillins Allergy (Verified 10/22/16 08:44) Rash atorvastatin [From Lipitor] Adverse Reaction (Verified 10/22/16 08:44) Muscle Pain Procedures/tests Complete & Pending: Procedures Performed prior 72 hours Category Date Time Status CT chest w/o contrast [CT chest wo con] [CT] Routine Cat Scan 10/22/16 09:00 Draft Date of admission: 10/22/16 04:58 Primary care physician: Yung Addison Jr, MD Consults: 10/22/16 06:55 Consult to Nurse Navigator [CONS] Routine Comment: 10/22/16 08:00 Consult to Cardiology [CONS] Routine Comment: Consulting Provider: [facility] [place] Reason for Consult: Preoperative medical clearance for patient with known moderate aortic stenosis and three-vessel coronary artery disease. Acute, displaced right femoral neck/ hip fracture. Please evaluate and advise. Call Completed: No Consult to Orthopedic Surgery [CONS] Routine Consulting Provider: Ovidio [place] Reason for Consult: Mechanical fall with acute, displaced, right femoral neck fracture. Please evaluate and advise. Time Notified: 04:50 Call Completed: Yes Discharging clinician: Benjie Mullins Anticipated date of discharge: 10/22/16 - Patient Status Disposition: Transfer Other Condition: Critical Functional capacity at discharge: bed bound Overall status at discharge: patient is not back to baseline - Discharge Instructions Follow Up With: Yung Addison Jr, MD [Primary Care Provider] - - Diet and Activity Diet: diabetic diet, low fat, low cholesterol, low salt diet Hospital course: Ms. Garcia is a 86 year old female with history of coronary artery disease and aortic stenosis was admitted here after a fall resulting in right femoral neck fracture. During her evaluation and review of her records, she was found to have severe aortic stenosis and multivessel, left main coronary artery disease during her previous hospitalization here when she underwent a left heart catheterization. At that time, she was recommended transfer to tertiary care center but she had refused and had been discharged. She has not followed up with data management manager since then. Orthopedics has evaluated the patient and recommended surgery for her. However given her aortic stenosis, coronary artery disease, recommended transfer to tertiary care center for balloon valvuloplasty, management of coronary artery disease prior to surgery as she is at higher risk for cardiac complications from hip surgery otherwise. I discussed this with the patient and she is willing to be transferred for evaluation and possible valvuloplasty for her aortic stenosis. She has been accepted for transfer to [facility] and will be transferred there when she has a bed available. - Time Spent with Patient Total time spent providing and/or coordinating discharge services: Greater than 30 minutes (35 min) - Constitutional Vitals: Temp Pulse Resp BP Pulse Ox 98.5 F 89 18 108/61 90 L 10/22/16 06:24 10/22/16 11:48 10/22/16 11:01 10/22/16 11:48 10/22/16 11:01 General appearance: Present: cooperative, A&O X 3, no acute distress, answers questions appropriately - Respiratory Respiratory exam: Present: CTAB. Absent: accessory muscle use, rales, rhonchi, wheezes - Cardiovascular Cardiovascular exam: Present: RRR, +S1, +S2, systolic murmur (Ejection systolic) . Absent: diastolic murmur, gallop, rubs - GI/Abdominal GI/Abdominal exam: Present: normal bowel sounds, soft, no peritoneal signs. Absent: distended, tenderness - Extremities Exam Extremities exam: Present: warm, radial pulses palpable and symetrical. Absent : calf tenderness, cyanotic, pedal edema - Attending Attestation This document has been at least partially created by Inu[employer] recognition technology by Dr. Mullins. Errors in grammar, wording or other phrases may exist. If errors are found after the documentation is signed, they will be addressed individually in the addendum section of this document when appropriate.
[2016-10-22] MEDS ORDERED: *HR* Enoxaparin 80 MG/0.8 ML SYRINGE SQ ONE (12:35)
[2016-10-22] MEDS ORDERED: FLU VACC QS2016-17 36MOS UP/PF 0.5 ML SYRINGE IM ONE (13:54)
[2016-10-22 14:58] VITALS: BP 119/63
--- NOTE | 2016-10-22 15:09 | Electrocardiograph Report ---
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
[2016-10-22] MEDS ORDERED: Doxycycline 100 MG in 0.9 % Sodium Chloride Mini Bag 100 ML IVPB SCH (18:00)
[2016-10-22] MEDS ORDERED: Insulin LISPRO 300 UNITS/3 ML VIAL SQ SCH (21:00)
[2016-10-22] MEDS ORDERED: Insulin DETEMIR 100 UNIT/ML X5UNITS SQ SCH (21:00)
--- NOTE | 2016-10-23 14:39 | Electrocardiograph Report ---
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
== END 2016-10-22 16:10 | disposition other institution (70) | DRG 536 ==
LOC: EMEROO 03:16 → 3NENU 04:58
PROVIDERS: ADMIT Internal Medicine; ATTEND Internal Medicine